=== PATIENT | female | born 1970 | race Caucasian/White ===

== ENCOUNTER → 2018-03-26 10:00 | Outpatient (CLI) | payer BC, SELFPAY ==
[2018-03-26 10:33] LABS: Absolute Lymphocyte Count 2.11 X10^3/ul (0.83-4.51); Basophil# 0.01 X10^3/uL; Basophil% 0.2 % (0-1); Eosinophil# 0.16 X10^3/uL; Eosinophils% 2.4 % (0-5); Hematocrit 38.6 % (37-47); Hemoglobin 12.6 g/dl (12.0-15.0); Lymphocyte # 2.11 X10^3/ul (4.0); Lymphocyte % 31.8 % (19-41); Mean Corp Hgb Conc 32.6 g/gl (32-36); Mean Corpuscular Hgb 29.5 pg (27.0-32.0); Mean Corpuscular Volume 90.4 fL (81-99); Mean Platelet Vol. 10.5 fl (6.2-12.0); Monocyte# 0.32 X10^3/uL; Monocyte% 4.8 % (0-10); Neutrophil # 4.02 X10^3/uL (2.7-7.7); Neutrophil % 60.6 % (47-70); Platelet Count 186 K/mm3 (150-450); RBC Distribution Width CV 13.5 % (11.6-14.6); RBC Distribution Width SD 44.2 fl (35.1-43.9); Red Blood Count 4.27 M/mm3 (4.2-5.4); White Blood Count 6.6 K/mm3 (4.4-11.0)
[2018-03-26 10:36] LABS: POSITIVE COUNT NO; POSITIVE DIFFERENTIAL NO; POSITIVE MORPHOLOGY NO
[2018-03-26 10:58] LABS: T4 Free Direct 0.95 ng/dL (0.76-1.46); Thyroid Stim Hormone (TSH) 1.87 uIU/mL (0.358-3.74)
== END ==
PROVIDERS: Family Provider Family Medicine; PCP Family Medicine; Referring Provider Obstetrics & Gynecology; Visit Provider Obstetrics & Gynecology
DX: N93.9 Abnormal uterine and vaginal bleeding, unspecified (principal); N39.46 Mixed incontinence
CPT/HCPCS: 36415; 84439; 84443; 85025

== ENCOUNTER → 2018-04-02 12:29 | Outpatient (CLI) | payer BC, SELFPAY ==
--- NOTE | 2018-04-02 12:31 | US_ITS ---
STUDY: ULTRASOUND OF THE FEMALE PELVIS - COMPLETE REASON FOR EXAM: Female, 48 years old. Abnormal menses. LMP: March 23, 2018. TECHNIQUE: Transabdominal and Transvaginal TECHNICAL QUALITY: Adequate. COMPARISON: None. FINDINGS: The uterus is anteverted and is in a midline position. The uterus measures 15.5 x 11.3 x 8.8 cm. There is a Nabothian cyst of the cervix. The endometrium measures 12.5 mm in thickness, and is hyperechoic. There is no demonstrated endometrial mass. There are multiple uterine fibroids. The largest in the posterior uterine fundus measures 7.6 x 6.1 x 6.9 cm. I.U.D. - The patient does not have an I.U.D. The right ovary is not visualized There is no visualized right adnexal mass or complex lesion. The left ovary is visualized. The left ovary measures 2.9 x 2.4 x 1.7 cm cm. There are multiple follicles of the left ovary without a dominant cyst. There is no visualized left adnexal mass or complex lesion. There is normal arterial and normal venous vascularity. There is no fluid in the cul-de-sac. The pre void volume of the bladder was 320 ml. The urinary bladder is grossly unremarkable. Polycystic ovary disease: No. US/Pelvic (Non ) IMPRESSION: 1. Enlarged fibroid uterus. 2. Prominent but otherwise unremarkable endometrium. 3. Nabothian cyst. 4. Normal left ovary. The right ovary is not visualized. Electronically Signed: Navarro Cerrato DO at 22:01 EDT Tel [phone], Service support ,
--- NOTE | 2018-04-02 12:31 | US_ITS ---
STUDY: ULTRASOUND OF THE FEMALE PELVIS - COMPLETE REASON FOR EXAM: Female, 48 years old. Abnormal menses. LMP: March 23, 2018. TECHNIQUE: Transabdominal and Transvaginal TECHNICAL QUALITY: Adequate. COMPARISON: None. FINDINGS: The uterus is anteverted and is in a midline position. The uterus measures 15.5 x 11.3 x 8.8 cm. There is a Nabothian cyst of the cervix. The endometrium measures 12.5 mm in thickness, and is hyperechoic. There is no demonstrated endometrial mass. There are multiple uterine fibroids. The largest in the posterior uterine fundus measures 7.6 x 6.1 x 6.9 cm. I.U.D. - The patient does not have an I.U.D. The right ovary is not visualized There is no visualized right adnexal mass or complex lesion. The left ovary is visualized. The left ovary measures 2.9 x 2.4 x 1.7 cm cm. There are multiple follicles of the left ovary without a dominant cyst. There is no visualized left adnexal mass or complex lesion. There is normal arterial and normal venous vascularity. There is no fluid in the cul-de-sac. The pre void volume of the bladder was 320 ml. The urinary bladder is grossly unremarkable. Polycystic ovary disease: No. US/Transvaginal Non- IMPRESSION: 1. Enlarged fibroid uterus. 2. Prominent but otherwise unremarkable endometrium. 3. Nabothian cyst. 4. Normal left ovary. The right ovary is not visualized. Electronically Signed: Navarro Cerrato DO at 22:01 EDT Tel [phone], Service support ,
== END ==
PROVIDERS: Family Provider Family Medicine; PCP Family Medicine; Referring Provider Obstetrics & Gynecology; Visit Provider Obstetrics & Gynecology
DX: N93.9 Abnormal uterine and vaginal bleeding, unspecified (principal); N39.46 Mixed incontinence
CPT/HCPCS: 76830; 76856; 93976

== ENCOUNTER → 2018-04-08 09:06 | Outpatient (CLI) | payer BC, SELFPAY ==
--- NOTE | 2018-04-08 | EMB_PTH ---
PATIENT: PRADEEP CAPUTO LOC: [facility] #:[id number] AGE/SX: 55/F ROOM: RE04/08/[address]: Dr. Christy Lozano MD : 1970 BED: DIS: SPEC #: [id number] RECD: 04/08/18 17:39 STATUS: GUANAKITO WERO #: [id number] [facility]: 04/08/18 00:[address]: Christy Lozano DEPT: SURGICAL PATHOLOGY RECD BY: Vernon Zapata ENTERED: 04/09/18 09:45 SP TYPE: ENDOM BX/C RASHID DR: Dr. Arielle Phillips MD Tissues: Endometrium, NOS Procedures: Surgery Specimen Level IV HEADER OPERATION: Endometrial biopsy PRE-OP DIAGNOSIS: Abnormal uterine bleeding TISSUE SUBMITTED: Endometrial MICROSCOPIC DIAGNOSIS Endometrium, biopsy: Mildly disordered proliferative endometrium. AM:isaiah 04/10/18 MICROSCOPIC DESCRIPTION Slides are reviewed. GROSS DESCRIPTION Received is one container labeled with the patient's name and not further designated. The specimen consists of multiple irregular fragments of trinidad-pink soft tissue that in aggregate measure 3 x 2.5 x 0.2 cm. The entire specimen is submitted in one cassette. / SJ:rg 04/09/18 TC:5 CPT: 86816
== END ==
PROVIDERS: Family Provider Family Medicine; PCP Family Medicine; Referring Provider Obstetrics & Gynecology; Visit Provider Obstetrics & Gynecology
DX: N93.9 Abnormal uterine and vaginal bleeding, unspecified (principal)
CPT/HCPCS: 88305

== ENCOUNTER 2018-06-19 08:44 | Day surgery (SDC) | payer BC, SELFPAY ==
[2018-05-26 15:24] VITALS: BMI 31.0
[2018-06-19] VITALS (11 sets, daily range): BP systolic 94–127; BP diastolic 7–80; PULSE 51–65; RESP 14–18; TEMP 36–37.3; O2SAT 95–100; BMI 31.3
--- NOTE | 2018-06-19 | HYST_PTH ---
PATIENT: PRADEEP CAPUTO LOC: [facility] U#:[id number] AGE/SX: 48/F ROOM: RE06/19/[address]: Dr. Christy Lozano MD : 1970 BED: DIS: 06/20/2018 SPEC #: [id number] RECD: 06/19/18 15:13 STATUS: GUANAKITO WERO #: [id number] [facility]: 06/19/18 00:[address]: Christy Lozano DEPT: SURGICAL PATHOLOGY RECD BY: Bubba Sepulveda ENTERED: 06/19/18 15:13 SP TYPE: HYSTERECT OTHR DR: Dr. Arielle Phillips MD Tissues: Uterus, NOS Procedures: Surgery Specimen Level V HEADER OPERATION: Hysterectomy, lap-assisted vagina, salpingectomy, cysto PRE-OP DIAGNOSIS: Dysmenorrhea TISSUE SUBMITTED: Uterus and bilateral fallopian tubes MICROSCOPIC DIAGNOSIS Uterus, hysterectomy: Cervix - nabothian cysts and mild chronic inflammation. Endometrium - secretory endometrium. Myometrium - leiomyomas. Right and left fallopian tubes - no pathologic change. AM:isaiah 06/20/18 MICROSCOPIC DESCRIPTION Slides are reviewed. GROSS DESCRIPTION Received in fixative is one container labeled with the patient's name and designated uterus and bilateral tubes. The specimen consists of a hysterectomy specimen consisting of uterus in three pieces, attached one fallopian tube to one of the largest pieces of uterus and detached second fallopian tube in two pieces. The three pieces of uterus weigh in aggregate 764 gm. The largest piece of uterus measures 15 x 20 x 11 cm. The second piece of uterus measures 11 x 6 x 7 cm and the smallest piece measures 3.5 x 4 x 3 cm. A portion of the second fallopian tube is also attached to the intermediate sized piece. The largest piece of uterus shows the cervix. The ectocervical mucosa is unremarkable. The external os is oval in contour. The endocervical canal measures 4 cm in length and the endocervical mucosa is unremarkable. The distal portion of the endometrial cavity is also present in this portion of the uterus which measures 2 cm in length. Sections of the cervix reveal a few cysts filled with mucoid material. The uterus cannot be oriented due to the disrupted nature of the specimen. The serosal surface is focally noted, which appears unremarkable. Sections of the largest piece of uterus also show a trinidad, nodular mass measuring 10 cm in greatest dimension. Sections of this mass reveals trinidad whorled cut surfaces without areas of hemorrhage, necrosis or cystic degeneration. The intermediate sized piece of uterus shows a portion of endometrial cavity which measures 2.5 cm in length and 1.5 cm in width. The endometrium is trinidad, glistening and measures 0.1 cm in thickness. Sections of the intermediate sized nodular mass also shows a portion of the largest uterine mass and also two smaller nodular masses measuring 0.7 and 2 cm in greatest dimension. The uninvolved uterine wall measures up to 3.5 cm in thickness. The attached fallopian tube measures 8 cm in length and 0.5 cm in diameter. The fimbrial end is identified. Sections reveal unremarkable cut surface. The attached portion of second fallopian tube measures 3 cm in length and 0.5 cm in diameter. The detached piece of second fallopian tube measures 3.5 cm in length and 0.7 cm in diameter. The third detached piece of fallopian tube consists of fimbrial end and measures 2 x 1 x 0.3 cm. Gamemaster sections are submitted in 12 cassettes as follows: 1 & 2 - cervix, 3-6 - uterine wall including endometrium, 7-9 - largest nodular mass, 10 - smaller nodular masses, 11 - intact fallopian tube, 12 - second fallopian tube received in multiple pieces. / CORAL:isaiah 06/19/18 TC:1 CPT: 96451
--- NOTE | 2018-06-19 03:39 | HP.PCM_ITS ---
- Problem List (1) Leiomyoma Status: Acute Comment: plan LAVH possible TLH cysto (2) Endometriosis Status: Acute (3) Mixed stress and urge urinary incontinence Status: Acute (4) Abnormal uterine bleeding Status: Acute History and Physical Date of Admission: 06/19/18 Vital Signs 06/05/18 Body Mass Index (BMI) 18.8 06/05/18 Blood Pressure 118/62 06/05/18 Height 5 ft 5 in 06/05/18 Weight: 114 lb 06/05/18 Body Mass Index (BMI) 18.9 06/05/18 Blood Pressure 112/64 05/30/18 Height 5 ft 5 in 05/30/18 Weight: 113 lb 8 oz 05/30/18 Body Mass Index (BMI) 18.8 05/30/18 Blood Pressure 118/62 Intake Visit Reasons: Surgery 06/19- Needs to sign Hyst consent Wheat Cleaner Required: No Is patient in pain?: No Allergies Penicillins Allergy (Verified 06/05/18 14:50) Rash azithromycin Adverse Reaction (Verified 06/05/18 14:50) Nausea Medications Amitriptyline HCl 10 mg PO DAILY 11/29/15 [History Confirmed 06/05/18] Ketotifen Fumarate [Zaditor] 1 drp EACH EYE BID PRN 12/06/15 [History Confirmed 06/05/18] acetaminophen ER 650 mg tablet,extended release 650 mg PO PRN PRN 12/17/17 [History Confirmed 06/05/18] cholecalciferol (vitamin D3) 2,000 unit capsule 2,000 unit PO QDAY 12/17/17 [History Confirmed 06/05/18] naproxen 250 mg tablet 250 mg PO PRN PRN 12/17/17 [History Confirmed 06/05/18] cetirizine 10 mg capsule 10 mg PO DAILY 05/30/18 [History Confirmed 06/05/18] Post menopausal: No Patient : No : No PFSH Medical History [place] teeth extracted (Acute) Surgical History H/O LEEP (Acute) H/O tubal ligation (Acute) History of tonsillectomy (Acute) ovarian cystectomy Family History Father Hypertension Mother Hypertension Breast cancer Social History Smoking Status: Current every day smoker alcohol intake: never substance use type: does not use what type of physical activity do you participate in: walking frequency: 5-6 times per week seatbelt use: never do you feel safe at home: Yes HPI Surgery 06/19- Needs to sign Hyst consent: Details: AVELINA KIMBALL is a 30 year old who presents for dysmenorrhea persistent failed medical management. has history of LEEP 2008. Female Reproductive History Cycle Length: 21-35 Bleeding Duration: 7 Pregancy History 2 Elective abortions Hx Para 2 Spontaneous abortions Hx # Term Pregnancies Ectopic pregnancies Hx # Pregnancies Multiple births # of living children Past Pregnancies Del. Date Name GA/Weeks Outcome Route Bth Weight Gen Labor Lgth Anesthesia Del Locatn Provider FOB Unknown marcos 2007 Unknown curtis 2011 ROS Const Constitutional: Denies poor appetite, headache(s), fever(s), increased appetite, weight gain, weight loss or fatigue ENT ENT: Denies dry mouth GI GI: Reports as per HPI; denies vomiting, nausea, abdominal pain or constipation : Reports as per HPI; denies difficulty urinating, blood in urine, pelvic pain, urinary frequency, urinary incontinence, urinary hesitancy, urinary urgency, vaginal discharge, vaginal dryness, vaginal odor, vaginal itching, other, painful urination or nipple discharge Skin Skin/Breast: Denies hair loss, change in hair, dry skin, breast pain, breast skin changes, breast lump or nipple discharge Exam Const General: cooperative, healthy appearing, comfortable, no acute distress, well developed Nutritional Appearance: average body habitus Orientation: alert [facility] Head: normal to inspection, normocephalic Ears: hearing grossly normal bilaterally, external ears normal Nose: external nose normal, nares normal Face and sinus: normal facial exam Neck Neck: normal visual inspection, trachea midline, no lymphadenopathy Thyroid: thyroid normal Resp Effort & Inspection: normal respiratory effort Musc Other: gross motor intact no deficits, full bilateral strength Skin General: no rashes or lesions noted Neuro Motor: muscle tone normal throughout Assessment & Plan Problems 1. Dysmenorrhea N94.6 failed OCP and IUD, plan TVH BS Plan discussed surgical risks including risks of anesthesia, infection, bleeding, injury to bowel, bladder or blood vessels, and patient wishes to proceed with surgery. Coding Level of Care Code No Charge Diagnoses Dysmenorrhea N94.6 UPDATE- I have seen the patient and performed any clinically relevant updates to the history and physical exam. Christy Lozano MD
[2018-06-19 09:08] LABS: Internal QC Validated? YES +Cl - CLEAR BKGD; Pregnancy, Urine Negative Negative
[2018-06-19 09:25] LABS: Hematocrit 38.8 % (37-47); Hemoglobin 13.3 g/dl (12.0-15.0); Mean Corp Hgb Conc 34.3 g/gl (32-36); Mean Corpuscular Hgb 30.5 pg (27.0-32.0); Mean Platelet Vol. 10.1 fl (6.2-12.0); Platelet Count 194 K/mm3 (150-450); RBC Distribution Width CV 12.7 % (11.6-14.6); RBC Distribution Width SD 40.9 fl (35.1-43.9); Red Blood Count 4.36 M/mm3 (4.2-5.4)
[2018-06-19] MEDS: Phenazopyridine 95 MG Tablet 190 MG PO (09:29)
[2018-06-19 09:31] LABS: Scan Indicated on CBC? Y/N NO
--- NOTE | 2018-06-19 10:58 | PCM.OPRPT ---
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 Patient was taken back to the operating room and placed in the dorsal lithotomy position. General anesthesia was induced and patient was prepped and draped in normal sterile fashion. Uterine manipulator was placed inside the uterus and Gleason catheter placed in the bladder. The umbilicus was grasped with towel clamps and an intraumbilical incision was made after injecting with quarter percent Marcaine and a Veress needle entered into the abdomen confirmed to be intra-abdominal with a low opening pressure. Abdomen was insufflated with CO2 gas and the Veress needle removed and the 5 mm trocar was placed under direct visualization without complication. T AP block was performed with the assistance of Dr. pastrana bilaterally injecting 30 cc of half percent Marcaine diluted and 70 cc of saline bilaterally between the ASIS joint and the bilateral subcostal margins going up medially. . Right and left lower quadrants were transilluminated and injected with half percent Marcaine and 5 mm ports placed under direct visualization. Pelvis was well visualized see operative findings for additional information. Bilateral fallopian tubes were identified and transected with the LigaSure device across the mesosalpinx to the level of the utero-ovarian ligament which was also transected with the LigaSure device. The broad ligament was opened up by transecting the round ligament bilaterally and skeletonizing the uterine vessels bilaterally and creating a bladder flap using the LigaSure device. The uterine arteries were transected bilaterally with good visualization of the bladder and the ureters were seen to be inferior lateral to the operative area. Attention was then paid to the vaginal portion of the procedure and the cervix was grasped with Cody clamps and circumferentially injected with dilute vasopressin. A circumferential incision was made and the vaginal mucosa was mobilized off posteriorly and the cul-de-sac entered into sharply and a longneck speculum placed. The anterior cul-de-sac was then identified and entered into sharply. The uterosacral ligaments were clamped cut and suture ligated with 0 Monocryl bilaterally followed by the cardinal ligaments which were clamped cut and suture ligated bilaterally with 0 Monocryl. The uterus serially descended and was removed without difficulty with significant morcellation. Pelvic sidewall pedicles were checked and noted to have excellent hemostasis. The vaginal mucosa was reapproximated incorporating the posterior peritoneum. This was reapproximated using 0 Vicryl [id number] sutures. Excellent hemostasis was noted. The cystoscopy was then performed and bilateral ureteral strong spray was noted on the patient's left side and the bladder was noted to have no abnormality or lesions seen. Right ureteral spray was not seen and therefore the right most lateral cuff suture was removed and again cystoscopy was performed and ureteral spray was confirmed soon additional suture was placed in the apex for closure and again cystoscopy was performed to confirm patency with strong ureteral sprays seen. Gleason catheter was replaced and then attention paid to the abdominal portion of the procedure again. The pelvis and cul-de-sac was well visualized and no significant active bleeding noted but some raw areas were seen on the peritoneum and therefore Danna was applied. Pressure was taken down and the areas visualized and noted of excellent hemostasis. All ports were removed under direct visualization without complication and the abdomen was desufflated of air. The instruments removed from the abdomen and the vagina vaginal sweep was negative. Port sites on the abdomen were closed with 4-0 Monocryl interrupted sutures and Steri's and windows were applied. She was awoken and taken recovery in stable condition. Grafts/Implants Used: none - Complications none - Admit VTE Documentation VTE Present on Admission: No
--- NOTE | 2018-06-19 11:01 | DCINST_ITS ---
Discharge Diet: No Restrictions Discharge Activity: Return to Normal Activity, May Not Drive, May Shower May resume sexual activity in: 6-8 weeks Call your doctor if your incision/area has: Continuous Slow Oozing, Sudden Increased Bleeding, Increased Pain/ Swelling, Increased Redness, Foul Smelling Discharge Call your doctor if you observe: Fever of 101 or Higher, Inability to urinate, Inability to have a bowel movement, Using more than one pad per hour Allergies/Adverse Reactions: Allergies No Known Allergies Allergy (Verified 06/12/18 11:17) Medications to take at Discharge atorvastatin 20 mg tablet 20 mg PO DAILY 03/25/18 multivitamin,vk-suij-vuzwzqrm tablet 1 tab PO DAILY 05/26/18 Naproxen [Naprosyn] 250 - 500 mg PO Q8H PRN PRN #30 tablet 06/19/18 Naproxen [Naprosyn] 250 - 500 mg PO Q8H PRN PRN #30 tablet 06/19/18 Oxycodone HCl/Acetaminophen [Percocet 5-325] 1 - 2 tablet PO Q4H PRN PRN 7 Days #28 tablet 06/19/18 Oxycodone HCl/Acetaminophen [Percocet 5-325] 1 - 2 tablet PO Q4H PRN PRN 7 Days #28 tablet 06/19/18 The following prescriptions were given: Oxycodone HCl/Acetaminophen [Percocet 5-325] 1 - 2 tablet PO Q4H PRN PRN 7 Days #28 tablet PRN Reason: Moderate-Severe pain Oxycodone HCl/Acetaminophen [Percocet 5-325] 1 - 2 tablet PO Q4H PRN PRN 7 Days #28 tablet PRN Reason: Moderate-Severe pain Naproxen [Naprosyn] 250 - 500 mg PO Q8H PRN PRN #30 tablet PRN Reason: MILD PAIN Naproxen [Naprosyn] 250 - 500 mg PO Q8H PRN PRN #30 tablet PRN Reason: MILD PAIN Orders to be completed after discharge: ,Urine Time Frame: 06/19/18, Location: Laboratory Primary Care Physician: Arielle Phillips MD [Primary Care Provider] - Test Results: Test results from this visit will be discussed in further detail at your follow- up appointment, if applicable. Please Follow Up With: Christy Lozano MD - [phone]
[2018-06-19] MEDS: Bupivacaine 0.5% PF 10 ML VIAL (11:36)
[2018-06-19] MEDS: Vasopressin 20 UNITS/ML Vial (12:10)
[2018-06-19] MEDS: 0.9% NaCl Peripheral Flush Adult/Peds IV ×2 (15:21→21:14)
[2018-06-19] MEDS: Ketorolac 30 MG/ML Syringe IV ×2 (15:21→21:14)
[2018-06-19] MEDS: Lactated Ringers 1,000 ML 125 ML IV (16:56)
[2018-06-19] MEDS: oxyCODONE 5 MG Tablet PO (19:01)
[2018-06-20] VITALS: BP 99/56; PULSE 67; RESP 16; TEMP 36.6; O2SAT 97
[2018-06-20] MEDS: Ketorolac 30 MG/ML Syringe IV (03:22)
[2018-06-20] MEDS: 0.9% NaCl Peripheral Flush Adult/Peds IV (03:22)
[2018-06-20 05:47] LABS: Hematocrit 33.3 % (37-47); Hemoglobin 11.1 g/dl (12.0-15.0); Mean Corp Hgb Conc 33.3 g/gl (32-36); Mean Platelet Vol. 10.2 fl (6.2-12.0); Platelet Count 183 K/mm3 (150-450); RBC Distribution Width CV 12.6 % (11.6-14.6); RBC Distribution Width SD 40.5 fl (35.1-43.9); White Blood Count 10.9 K/mm3 (4.4-11.0)
[2018-06-20 05:48] LABS: Scan Indicated on CBC? Y/N NO
[2018-06-20 06:00] VITALS: BP 109/67; PULSE 76; RESP 18; TEMP 36.8; O2SAT 98
[2018-06-20] MEDS: Acetaminophen 500 MG Tablet 1000 MG PO (06:17)
--- NOTE | 2018-06-20 07:05 | PCM.PN.OB ---
Subjective: doing no cp sob nv ambulating voiding tolerating po - Physical Exam General: Alert, Oriented x3, Cooperative Abdomen: Soft, Non Tender Vital Signs Temp Pulse Resp BP Pulse Ox 98.3 F 76 18 109/67 98 06/20/18 06:00 06/20/18 06:00 06/20/18 06:00 06/20/18 06:00 06/20/18 06:00 Oxygen Delivery Method Room Air Weight: 196 lb 13.965 oz Body Mass Index (BMI) 31.3 Intake and Output for Last 24 Hours 06/18/18 06/19/18 06/20/18 23:59 23:59 23:59 Intake Total 2345 / 2345 3126 / 3126 Output Total 940 / 940 1150 / 1150 Balance 1405 / 1405 1975 / 1975 Laboratory Tests Past 24 Hrs 06/19/18 06/19/18 06/19/18 08:00 09:12 09:12 WBC 5.0 RBC 4.36 Hgb 13.3 Hct 38.8 MCV 89.0 MCH 30.5 MCHC 34.3 RDW 12.7 RDW Differential 40.9 Plt Count 194 MPV 10.1 Urine Test Negative Blood Type B POSITIVE Antibody Screen NEGATIVE 06/20/18 05:26 WBC 10.9 RBC 3.70 L Hgb 11.1 L Hct 33.3 L MCV 90.0 MCH 30.0 MCHC 33.3 RDW 12.6 RDW Differential 40.5 Plt Count 183 MPV 10.2 Urine Test Blood Type Antibody Screen Medical Necessity - Tobacco Use Smoking Status: Never smoker Tobacco Use: Non-smoker Assessment/Plan All Active Problems (Last Reviewed 05/26/18 @ 15:25 by Sybil Aguilera) Leiomyoma (Acute) Endometriosis (Acute) Mixed stress and urge urinary incontinence (Acute) Abnormal uterine bleeding (Acute) Stress incontinence (Resolved) s/p LAVH BS routine care wv home today
[2018-06-20] MEDS: Multivitamins,Therapeutic Tablet 1 TABLET PO (08:16)
[2018-06-20] MEDS: Ketorolac 10 MG Tablet PO (08:18)
[2018-06-20 08:26] VITALS: O2SAT 96
[2018-06-20 08:27] VITALS: BP 113/67; PULSE 72; RESP 18; TEMP 36.9; O2SAT 98
== END 2018-06-20 08:40 | disposition home or self-care (01) ==
LOC: SDC 08:45 → AC 08:47 → MS3 08:50
PROVIDERS: Family Provider Family Medicine; PCP Family Medicine; Referring Provider Obstetrics & Gynecology; Visit Provider Obstetrics & Gynecology
PROC: 0UT9FZZ Resection of Uterus, Via Natural or Artificial Opening With Percutaneous Endoscopic Assistance (ICD-10-PCS; CPT 52000; principal; 2018-06-19 10:20)
DX: N72 Inflammatory disease of cervix uteri (principal); D25.9 Leiomyoma of uterus, unspecified; N88.8 Other specified noninflammatory disorders of cervix uteri; N39.46 Mixed incontinence; F17.200 Nicotine dependence, unspecified, uncomplicated; E78.00 Pure hypercholesterolemia, unspecified; Z79.899 Other long term (current) drug therapy
CPT/HCPCS: 52000; 58554; 36415; 81025; 85027; 86850; 86900; 88307; J7120; A4216; J2405